=== PATIENT | female | born 1995 | race Caucasian/White ===

== ENCOUNTER 2020-08-24 10:31 | Emergency (ER) | payer MEDICAID ==
[~2020-08-24] VITALS: Ht 160 cm; Wt 55.0 kg
[2020-08-24] MEDS ORDERED: ONDANSETRON HCL 4MG/2ML INJ IV STA (11:13)
[2020-08-24] MEDS ORDERED: MORPHINE SULFATE 4 MG/ML CPJ (NOT FOR IM USE) IV STA (11:13)
[2020-08-24] MEDS ORDERED: ACETAMINOPHEN 325MG TABLET PO ONE (11:15)
[2020-08-24] MEDS ORDERED: SODIUM CHLORIDE 0.9% 1,000 ML IV ONE ×2 (11:15→12:00)
[2020-08-24 11:25] LABS: HEMATOCRIT. 39.1 % (36.0-48.0); HEMOGLOBIN. 13.1 g/dL (12.0-16.0); MEAN CORPUSCULAR HEMOGLOBIN 30.5 pg (28.0-32.0); MEAN CORPUSCULAR VOLUME 90.8 fL (81.0-99.0); MEAN PLATELET VOLUME 8.8 fl (7.4-10.4); PLATELET 302 x1000/uL (130-400); RED BLOOD CELL COUNT 4.31 mill/uL (4.2-5.4); RED CELL DISTRIBUTION WIDTH 12.2 % (11.6-14.6)
[2020-08-24 11:27] LABS: CHLORIDE 101 mEq/L (98-107)
[2020-08-24 11:29] LABS: CLARITY URINE CLEAR (CLEAR); COLOR URINE YELLOW (YELLOW); KETONES URINE NEGATIVE (NEGATIVE); LEUKOCYTE ESTERASE URINE 3+ (NEGATIVE); NITRITE URINE NEGATIVE (NEGATIVE); OCCULT BLOOD URINE TRACE (NEGATIVE); PH URINE 7.5 (4.5-8.0); PROTEIN URINE NEGATIVE (NEGATIVE); SPECIFIC GRAVITY URINE 1.003 (1.005-1.030)
[2020-08-24 11:37] LABS: HCG SCREEN NEGATIVE
[2020-08-24 11:41] LABS: INR 1.1; PROTHROMBIN TIME 11.7 sec (9.6-11.0)
[2020-08-24] MEDS ORDERED: POTASSIUM CHLORIDE 20MEQ TABLET SR PO SCH (12:00)
[2020-08-24] MEDS ORDERED: CEFTRIAXONE 1 G PREMIX 50 ML IV ONE (12:00)
[2020-08-24 13:21] LABS: PLATELET ESTIMATE NORMAL
[2020-08-24] MEDS ORDERED: CEPH500C2 MT (13:56)
[2020-08-24 14:36] VITALS: BP 114/76
== END 2020-08-24 14:40 | disposition home or self-care (01) ==
LOC: ER 10:31 → EDBD 10:31 → ER 14:40
DX: N10 Acute pyelonephritis (principal); I10 Essential (primary) hypertension; R00.0 Tachycardia, unspecified; D72.829 Elevated white blood cell count, unspecified; Z86.39 Personal history of other endocrine, nutritional and metabolic disease; Z98.890 Other specified postprocedural states
CPT/HCPCS: 36415; 80053; 81003; 83690; 84703; 85025; 85610; 93005; 96361; 96365; 96366; 99284; J0696; J2270; J2405; J7030

== ENCOUNTER 2024-02-24 10:14 | Emergency (ER) | payer MEDICAID ==
[~2024-02-24] VITALS: Ht 162.6 cm; Wt 71.0 kg
[~2024-02-24 10:14] MED LIST: CEPH500C2 MT
[2024-02-24 10:16] VITALS: BP 148/89; PULSE 95; RESP 20; TEMP 99; O2SAT 99
[2024-02-24] MEDS ORDERED: BENZ100C86 MT (11:50)
[2024-02-24] MEDS ORDERED: NAPR-679 MT (12:01)
== END 2024-02-24 12:50 | disposition home or self-care (01) ==
LOC: ER 10:14
DX: J11.1 Influenza due to unidentified influenza virus with other respiratory manifestations (principal); E03.9 Hypothyroidism, unspecified; I10 Essential (primary) hypertension; F41.9 Anxiety disorder, unspecified
CPT/HCPCS: 71045; 99283